=== PATIENT | male | born 1995 | race Two or more races ===

== ENCOUNTER 2017-01-11 03:37 | Emergency (ER) | payer SELFPAY ==
[~2017-01-11] VITALS: Ht 172.7 cm; Wt 113.4 kg
[2017-01-11 03:40] VITALS: BP 159/82
[2017-01-11] MEDS ORDERED: KETOROLAC TROMETHAMINE 60 MG/2 ML INJ. IM ONE (05:00)
[2017-01-11] MEDS ORDERED: CYCLOBENZAPRINE 10 MG TABLET. PO ONE (05:00)
[2017-01-11] MEDS ORDERED: traMADol 50 MG TABLET PO ONE (05:00)
[2017-01-11] MEDS ORDERED: CYCL10TA2 PO (05:22)
[2017-01-11] MEDS ORDERED: TRAM-48 PO (05:22)
[2017-01-11] MEDS ORDERED: NAPR500T PO (05:22)
--- NOTE | 2017-01-11 05:32 | PHYS DOC ---
Past Medical History Past Medical History: No Pertinent History Past Surgical History: No Surgical History Alcohol Use: None Drug Use: None Adult General Chief Complaint Chief Complaint: Neck Pain HPI HPI Patient is a 21 year old [f__sex] who presents with [] Review of Systems Review of Systems Constitutional: Denies fever or chills [] Eyes: Denies change in visual acuity, redness, or eye pain [] HENT: Denies nasal congestion or sore throat [] Respiratory: Denies cough or shortness of breath [] Cardiovascular: No additional information not addressed in HPI [] GI: Denies abdominal pain, nausea, vomiting, bloody stools or diarrhea [] : Denies dysuria or hematuria [] Musculoskeletal: Denies back pain or joint pain [] Integument: Denies rash or skin lesions [] Neurologic: Denies headache, focal weakness or sensory changes [] Endocrine: Denies polyuria or polydipsia [] Current Medications Current Medications Current Medications Medications (Trade) Dose Ordered Sig/Jovanny Start Time Stop Time Status Last Admin Dose Admin Cyclobenzaprine HCl (Flexeril) 10 mg 1X ONCE 01/11/17 05:00 01/11/17 05:01 DC 01/11/17 05:05 10 MG Ketorolac Tromethamine (Toradol Im) 30 mg 1X ONCE 01/11/17 05:00 01/11/17 05:01 DC 01/11/17 05:06 30 MG Tramadol HCl (Ultram) 50 mg 1X ONCE 01/11/17 05:00 01/11/17 05:01 DC 01/11/17 05:05 50 MG Allergies Allergies Allergies Coded Allergies Type Severity Reaction Last Updated Verified No Known Drug Allergies 01/11/17 No Physical Exam Physical Exam Constitutional: Well developed, well nourished, no acute distress, non-toxic appearance. [] HENT: Normocephalic, atraumatic, bilateral external ears normal, oropharynx moist, no oral exudates, nose normal. [] Eyes: PERRLA, EOMI, conjunctiva normal, no discharge. [] Neck: Normal range of motion, no tenderness, supple, no stridor. [] Cardiovascular:Heart rate regular rhythm, no murmur [] Lungs & Thorax: Bilateral breath sounds clear to auscultation [] Abdomen: Bowel sounds normal, soft, no tenderness, no masses, no pulsatile masses. [] Skin: Warm, dry, no erythema, no rash. [] Back: No tenderness, no CVA tenderness. [] Extremities: No tenderness, no cyanosis, no clubbing, ROM intact, no edema. [] Neurologic: Alert and oriented X 3, normal motor function, normal sensory function, no focal deficits noted. [] Psychologic: Affect normal, judgement normal, mood normal. [] Current Patient Data Vital Signs Vital Signs Date Time Temp Pulse Resp B/P (MAP) Pulse Ox O2 Delivery O2 Flow Rate FiO2 01/11/17 03:40 98.7 68 18 100 Room Air 98.7 EKG EKG [] Radiology/Procedures Radiology/Procedures [] Course & Med Decision Making Course & Med Decision Making Pertinent Labs and Imaging studies reviewed. (See chart for details) [] Dragon Disclaimer Dragon Disclaimer This electronic medical record was generated, in whole or in part, using a voice recognition dictation system. Departure Departure Impression: Primary Impression: Torticollis Disposition: HOME, SELF-CARE Condition: IMPROVED Referrals: NO PCP (PCP) Patient Instructions: Torticollis, Acute Scripts Tramadol Hcl (ULTRAM) 50 Mg Tablet 1 TAB PO Q6HRS, #14 TAB Prov: NIA KO MD 01/11/17 Naproxen (NAPROSYN) 500 Mg Tablet 500 MG PO BID, #20 TAB Prov: NIA KO MD 01/11/17 Cyclobenzaprine Hcl (CYCLOBENZAPRINE HCL) 10 Mg Tablet 10 MG PO TID Y for MUSCLE PAIN, #20 TAB Prov: NIA KO MD 01/11/17 NIA KO MD Jan 11, 2017 05:32
== END 2017-01-11 05:42 | disposition home or self-care (01) ==
LOC: ER 03:37
DX: M43.6 Torticollis (principal)
CPT/HCPCS: 96372; 99283; J1885